=== PATIENT | male | born 1950 | race Caucasian/White ===

== ENCOUNTER 2021-09-18 08:15 | Emergency (ER) | payer MEDICARE, MEDICAID ==
[~2021-09-18] VITALS: Ht 172.7 cm; Wt 75.0 kg
[2021-09-18 09:34] LABS: BASOPHILS % (AUTO) 0.6 % (0.0-2.0); EOSINOPHILS % (AUTO) 0.2 % (1.0-6.0); HEMATOCRIT 45.1 % (41-53); LYMPHOCYTES # (AUTO) 2.2 K/uL (1.0-4.8); LYMPHOCYTES % (AUTO) 19.6 % (22.0-44.0); MEAN CORPUSCULAR HEMOGLOBIN 33.5 pg (26.0-34.0); MEAN CORPUSCULAR HGB CONC 33.2 G/dL (31.0-37.0); MEAN CORPUSCULAR VOLUME 101 fL (80-100); MONOCYTES # (AUTO) 0.9 K/uL (0.1-1.0); MONOCYTES % (AUTO) 8.4 % (2.0-9.0); NEUTROPHILS % (AUTO) 71.2 % (40.0-70.0); PLATELET COUNT (AUTO) 230 K/uL (150-450); RED BLOOD CELL COUNT(AUTO) 4.47 MIL/uL (4.50-5.90); RED CELL DISTRIBUTION WIDTH 14.1 % (11.5-14.5)
[2021-09-18 09:48] LABS: ANION GAP 9 mmol/L (8-16); CALCIUM, TOTAL 9.9 mg/dL (8.8-10.5); CARBON DIOXIDE 27 mmol/L (22-29); CHLORIDE 101 mmol/L (98-107); GLOMERULAR FILTR. RATE CALC 24 mL/min (>60); GLUCOSE,RANDOM 100 mg/dL (70-110); POTASSIUM 4.3 mmol/L (3.5-5.1); SODIUM SERUM 137 mmol/L (136-145); UREA NITROGEN, BLOOD 32 mg/dL (7-18)
[2021-09-18 09:57] LABS: LACTIC ACID 1.3 mmol/L (0.4-2.0)
[2021-09-18 09:58] LABS: COVID AG,FIA SOURCE NASOPHARYNGEAL
[2021-09-18 10:00] LABS: B-TYPE NATRIURETIC PEPTIDE 14 pg/mL (0-100)
[2021-09-18] MEDS ORDERED: SODIUM CHLORIDE 0.9% 1,000 ML IV ONE (10:00)
[2021-09-18 10:11] LABS: PROTHROMBIN TIME 10.9 SEC (9.4-11.6)
[2021-09-18 10:26] LABS: ALANINE AMINOTRANSFERASE 41 U/L (12-78); ALBUMIN 4.1 g/dL (3.4-5.0); ALKALINE PHOSPHATASE 94 U/L (46-116); ASPARTATE AMINOTRANSFERASE 49 U/L (15-37); BILIRUBIN,TOTAL 0.8 mg/dL (0.1-1.0); CREATINE KINASE, TOTAL ONLY 1701 U/L (39-308)
[2021-09-18] MEDS ORDERED: ACETAMINOPHEN 325 MG TABLET PO PRN (10:30)
[2021-09-18] MEDS ORDERED: ONDANSETRON HCL 4 MG/2 ML VIAL IVP PRN (10:30)
[2021-09-18] MEDS ORDERED: MULTIVITAMINS WITH MINERALS, THERAPEUTIC TABLET ONE (10:45)
[2021-09-18] MEDS: MULTIVITAMINS WITH MINERALS, THERAPEUTIC TABLET PO SCH (10:45)
[2021-09-18 18:44] LABS: APPEARANCE,URINE CLOUDY (CLEAR); BILIRUBIN,URINE NEGATIVE (NEGATIVE); GLUCOSE, URINE (UA) NEGATIVE (NEGATIVE); KETONES,URINE NEGATIVE (NEGATIVE); LEUKOCYTE ESTERASE ,URINE LARGE (NEGATIVE); NITRATE,URINE NEGATIVE (NEGATIVE); OCCULT BLOOD,URINE TRACE (NEGATIVE); PROTEIN,URINE NEGATIVE (NEGATIVE); UROBILINOGEN,URINE 0.2 mg/dL (<=1.0)
[2021-09-18] MEDS ORDERED: TRAZ150T79 PO (18:46)
[2021-09-18] MEDS ORDERED: GABA-583 PO (18:46)
[2021-09-18 18:48] LABS: AMPHET/METH SCREEN,URINE NEGATIVE (NEGATIVE); BARBITURATE SCREEN, URINE NEGATIVE (NEGATIVE); BENZODIAZEPINES SCREEN,URINE NEGATIVE (NEGATIVE); CANNABINOID SCREEN,URINE POSITIVE (NEGATIVE); COCAINE SCREEN,URINE NEGATIVE (NEGATIVE); METHADONE SCREEN, URINE NEGATIVE (NEGATIVE); OPIATE SCREEN,URINE NEGATIVE (NEGATIVE); PHENCYCLIDINE SCREEN,URINE NEGATIVE (NEGATIVE)
[2021-09-18 19:07] LABS: BACTERIA,URINE Moderate /HPF (None Seen); SQUAMOUS EPITHELIAL CELL,UR Few /LPF (None Seen); WBC,URINE 51-100 /HPF (0-5)
[2021-09-18] MEDS: DOCUSATE SODIUM 100 MG CAPSULE PO SCH (21:00)
[2021-09-18] MEDS ORDERED: TraZODone HCL 150 MG TABLET PO SCH (21:00)
[2021-09-18] MEDS: HEPARIN SODIUM,PORCINE 5,000 UNITS/ML VIAL SQ SCH (21:15)
[2021-09-18] MEDS: GABAPENTIN 100 MG CAPSULE PO SCH (21:15)
[2021-09-19 07:08] LABS: ANION GAP 6 mmol/L (8-16); CALCIUM, TOTAL 9.2 mg/dL (8.8-10.5); CARBON DIOXIDE 25 mmol/L (22-29); CHLORIDE 107 mmol/L (98-107); CREATININE 1.18 mg/dL (0.60-1.30); GLUCOSE,RANDOM 108 mg/dL (70-110); POTASSIUM 4.3 mmol/L (3.5-5.1); SODIUM SERUM 138 mmol/L (136-145); UREA NITROGEN, BLOOD 23 mg/dL (7-18)
[2021-09-19 07:10] LABS: GLOMERULAR FILTR. RATE CALC > 60 mL/min (>60)
[2021-09-19] MEDS: DOCUSATE SODIUM 100 MG CAPSULE PO SCH (08:22)
[2021-09-19] MEDS: MULTIVITAMINS WITH MINERALS, THERAPEUTIC TABLET PO SCH (08:23)
[2021-09-19] MEDS: GABAPENTIN 100 MG CAPSULE PO SCH (08:23)
[2021-09-19] MEDS: HEPARIN SODIUM,PORCINE 5,000 UNITS/ML VIAL SQ SCH (08:24)
[2021-09-19] MEDS ORDERED: FAMOTIDINE 20 MG TABLET PO SCH (09:00)
[2021-09-19] MEDS ORDERED: SODIUM CHLORIDE 0.9% 1,000 ML IV ONE (10:15)
[2021-09-19 10:42] LABS: BASOPHILS % (AUTO) 1.4 % (0.0-2.0); EOSINOPHILS % (AUTO) 1.4 % (1.0-6.0); HEMATOCRIT 42.3 % (41-53); HEMOGLOBIN 13.9 g/dL (13.5-17.5); LYMPHOCYTES # (AUTO) 2.2 K/uL (1.0-4.8); LYMPHOCYTES % (AUTO) 33.9 % (22.0-44.0); MEAN CORPUSCULAR HGB CONC 32.8 G/dL (31.0-37.0); MEAN CORPUSCULAR VOLUME 101 fL (80-100); MONOCYTES # (AUTO) 0.7 K/uL (0.1-1.0); MONOCYTES % (AUTO) 10.3 % (2.0-9.0); NEUTROPHILS # (AUTO) 3.5 K/uL (1.8-7.7); PLATELET COUNT (AUTO) 195 K/uL (150-450); RED CELL DISTRIBUTION WIDTH 14.1 % (11.5-14.5)
[2021-09-19 11:09] LABS: CREATINE KINASE, TOTAL ONLY 504 U/L (39-308)
[2021-09-19 11:24] VITALS: BP 135/72
== END 2021-09-19 12:00 | disposition admitted as inpatient to this hospital (09) ==
LOC: EMS 08:18
DX: N17.9 Acute kidney failure, unspecified (principal); E86.0 Dehydration; M62.82 Rhabdomyolysis; R53.1 Weakness; Z79.899 Other long term (current) drug therapy; Z20.822 Contact with and (suspected) exposure to COVID-19
CPT/HCPCS: 36415; 71045; 80048; 80053; 80307; 81001; 82550; 83605; 83735; 83880; 84484; 85025; 85610; 85730; 87086; 87426; 93005; 96360; 96361; 96372; 99285; G0480; J1644 ×2